=== PATIENT | female | born 1955 | race Caucasian/White ===

== ENCOUNTER 2017-09-08 08:28 | Day surgery (SDC) | payer MEDICARE, MEDICAID ==
[~2017-09-08] VITALS: Ht 147.3 cm; Wt 104.5 kg
[2017-09-08] MEDS ORDERED: SODIUM CHLORIDE 0.9% 1,000 ML IV ONE (09:44)
[2017-09-08 09:48] VITALS: BP 148/78
[2017-09-08] MEDS ORDERED: VALA500T PO (10:04)
[2017-09-08] MEDS ORDERED: ATOR40TA78 PO (10:04)
[2017-09-08] MEDS ORDERED: LISI-170 PO (10:04)
[2017-09-08] MEDS ORDERED: CALCIUM PO (10:04)
[2017-09-08] MEDS ORDERED: INSU100V8 SQ (10:04)
[2017-09-08] MEDS ORDERED: POTA20TA6 PO (10:04)
[2017-09-08] MEDS ORDERED: CEPH-376 PO (10:04)
[2017-09-08] MEDS ORDERED: GABA600T2 PO (10:04)
[2017-09-08] MEDS ORDERED: ASPI-621 PO (10:04)
[2017-09-08] MEDS ORDERED: FURO20TA3 PO (10:04)
[2017-09-08] MEDS ORDERED: DIPH25CA61 PO (10:04)
[2017-09-08] MEDS ORDERED: OMEP40CA6 PO (10:04)
[2017-09-08] MEDS ORDERED: ALBU18HF INH (10:04)
[2017-09-08] MEDS ORDERED: METO50TA6 PO (10:04)
[2017-09-08] MEDS ORDERED: ONDA4TAB13 SL (10:04)
[2017-09-08] MEDS ORDERED: VIT D PO (10:04)
[2017-09-08] MEDS ORDERED: FLUT1DIS3 INH (10:04)
[2017-09-08] MEDS ORDERED: HEPARIN 1,000 UNITS/ML, 10ML ONE ×2 (10:19→10:25)
[2017-09-08] MEDS ORDERED: LIDOCAINE 2%, 2ML ONE (10:19)
[2017-09-08] MEDS ORDERED: MIDAZOLAM 1 MG/ML, 5ML ONE ×2 (10:19→10:24)
[2017-09-08] MEDS ORDERED: VERAPAMIL 2.5 MG/ML, 2ML ONE ×2 (10:19→10:24)
[2017-09-08] MEDS ORDERED: TICAGRELOR 90 MG TABLET ONE ×2 (10:19→10:24)
[2017-09-08] MEDS ORDERED: BIVALIRUDIN 250 MG ONE ×2 (10:19→10:25)
[2017-09-08] MEDS ORDERED: FENTANYL PF 100 MCG/2ML ONE ×2 (10:19→10:24)
[2017-09-08 10:25] LABS: BASOPHILS # (AUTO) 0.06 x10^3/uL (0-0.1); BASOPHILS % (AUTO) 1 % (0-1); EOSINOPHILS # (AUTO) 0.53 x10^3/uL (0-0.4); EOSINOPHILS % (AUTO) 9 % (1-7); LYMPHOCYTES # (AUTO) 0.97 x10^3/uL (1-3.4); LYMPHOCYTES % (AUTO) 17 % (22-44); MD NO; MEAN CORPUSCULAR HEMOGLOBIN 25.7 pg (27.0-34.8); MEAN CORPUSCULAR HGB CONC 32.7 g/dL (32.4-35.8); MEAN CORPUSCULAR VOLUME 78.7 fL (80-100); MEAN PLATELET VOLUME 7.9 fL (7.4-10.4); MONOCYTES # (AUTO) 0.34 x10^3/uL (0.2-0.8); MONOCYTES % (AUTO) 6 % (2-9); NEUTROPHILS # (AUTO) 3.75 x10^3/uL (1.8-6.8); NEUTROPHILS % (AUTO) 66 % (42-75); PLATELET COUNT 262 x10^3/uL (130-400); RED BLOOD COUNT 3.78 x10^6/uL (3.82-5.3); RED CELL DISTRIBUTION WIDTH 17.2 % (9.6-15.2)
[2017-09-08 10:29] LABS: ANION GAP 1 mmol/L (5-15); CALCIUM 8.7 mg/dL (8.5-10.1); CHLORIDE 111 mmol/L (98-107); CREATININE 1.03 mg/dL (0.55-1.02)
[2017-09-08] MEDS ORDERED: SODIUM CHLORIDE 0.9% 1,000 ML IV SCH (11:04)
== END 2017-09-08 15:39 ==
LOC: CVU 08:28
PROVIDERS: ATTEND Internal Medicine Cardiovascular Disease
DX: I25.10 Atherosclerotic heart disease of native coronary artery without angina pectoris (principal); Z79.82 Long term (current) use of aspirin; Z87.891 Personal history of nicotine dependence
CPT/HCPCS: 36415; 80048; 85025; 93306; 93458; 99156; C1769; C1894; J1644; J2250; J3010; J3490; J7030; Q9967; J0583

== ENCOUNTER → 2017-10-04 | Outpatient (CLI) | payer MEDICARE, MEDICAID ==
[~2017-10-04] MED LIST: ALBU18HF INH; ASPI-621 PO; ATOR40TA78 PO; CALCIUM PO; CEPH-376 PO; DIPH25CA61 PO; FLUT1DIS3 INH; FURO20TA3 PO; GABA600T2 PO; INSU100V8 SQ; LISI-170 PO; METO50TA6 PO; OMEP40CA6 PO; ONDA4TAB13 SL; POTA20TA6 PO; VALA500T PO; VIT D PO
[2017-10-04 16:01] LABS: BASOPHILS # (AUTO) 0.04 x10^3/uL (0-0.1); BASOPHILS % (AUTO) 1 % (0-1); EOSINOPHILS # (AUTO) 0.79 x10^3/uL (0-0.4); EOSINOPHILS % (AUTO) 12 % (1-7); LYMPHOCYTES # (AUTO) 1.13 x10^3/uL (1-3.4); LYMPHOCYTES % (AUTO) 16 % (22-44); MD NO; MEAN CORPUSCULAR HEMOGLOBIN 25.4 pg (27.0-34.8); MEAN CORPUSCULAR HGB CONC 32.2 g/dL (32.4-35.8); MEAN CORPUSCULAR VOLUME 78.7 fL (80-100); MEAN PLATELET VOLUME 7.5 fL (7.4-10.4); MONOCYTES # (AUTO) 0.36 x10^3/uL (0.2-0.8); MONOCYTES % (AUTO) 5 % (2-9); NEUTROPHILS # (AUTO) 4.61 x10^3/uL (1.8-6.8); NEUTROPHILS % (AUTO) 67 % (42-75); PLATELET COUNT 258 x10^3/uL (130-400); RED BLOOD COUNT 4.39 x10^6/uL (3.82-5.3); RED CELL DISTRIBUTION WIDTH 17.2 % (9.6-15.2)
[2017-10-04 16:09] LABS: ANION GAP 3 mmol/L (5-15); CALCIUM 9.3 mg/dL (8.5-10.1); CHLORIDE 108 mmol/L (98-107)
== END | disposition home or self-care (01) ==
LOC: CFH 12:52
PROVIDERS: ATTEND Nurse Practitioner Family
DX: I10 Essential (primary) hypertension (principal)
CPT/HCPCS: 36415; 80048; 85025

== ENCOUNTER → 2017-11-15 | Outpatient (CLI) | payer MEDICARE, MEDICAID | END | disposition home or self-care (01) | LOC: WOUND 13:05 | PROVIDERS: ATTEND Internal Medicine | DX: T21.22XA Burn of second degree of abdominal wall, initial encounter (principal); T24.211A Burn of second degree of right thigh, initial encounter; S70.341A External constriction, right thigh, initial encounter; S30.84 External constriction of abdomen, lower back, pelvis and external genitals; T31.0 Burns involving less than 10% of body surface; E66.01 Morbid (severe) obesity due to excess calories; J44.9 Chronic obstructive pulmonary disease, unspecified; I89.0 Lymphedema, not elsewhere classified; I11.0 Hypertensive heart disease with heart failure; I50.9 Heart failure, unspecified; Z79.4 Long term (current) use of insulin; Z68.41 Body mass index [BMI] 40.0-44.9, adult; Z87.891 Personal history of nicotine dependence; W49.09XA Other specified item causing external constriction, initial encounter; X10.0XXA Contact with hot drinks, initial encounter; Y93.89 Activity, other specified; Y92.89 Other specified places as the place of occurrence of the external cause; Y99.8 Other external cause status | CPT/HCPCS: 97597; 97598; G0463; WOU0463 ==

== ENCOUNTER → 2017-11-29 | Outpatient (CLI) | payer MEDICARE, MEDICAID | END | disposition home or self-care (01) | LOC: WOUND 11:00 | PROVIDERS: ATTEND Internal Medicine | DX: T21.32XD Burn of third degree of abdominal wall, subsequent encounter (principal); T31.0 Burns involving less than 10% of body surface; E11.8 Type 2 diabetes mellitus with unspecified complications; I11.0 Hypertensive heart disease with heart failure; I50.9 Heart failure, unspecified; J44.9 Chronic obstructive pulmonary disease, unspecified; E66.01 Morbid (severe) obesity due to excess calories; Z68.41 Body mass index [BMI] 40.0-44.9, adult; Z79.4 Long term (current) use of insulin; Z87.891 Personal history of nicotine dependence; X08.8XXD Exposure to other specified smoke, fire and flames, subsequent encounter | CPT/HCPCS: 97597 ==

== ENCOUNTER → 2017-12-06 | Outpatient (CLI) | payer MEDICARE, MEDICAID | END | disposition home or self-care (01) | LOC: WOUND 09:13 | PROVIDERS: ATTEND Internal Medicine | DX: T21.32XD Burn of third degree of abdominal wall, subsequent encounter (principal); T31.0 Burns involving less than 10% of body surface; I11.0 Hypertensive heart disease with heart failure; I50.9 Heart failure, unspecified; J44.9 Chronic obstructive pulmonary disease, unspecified; I89.0 Lymphedema, not elsewhere classified; E11.8 Type 2 diabetes mellitus with unspecified complications; K21.9 Gastro-esophageal reflux disease without esophagitis; E66.01 Morbid (severe) obesity due to excess calories; F15.20 Other stimulant dependence, uncomplicated; Z68.41 Body mass index [BMI] 40.0-44.9, adult; Z79.4 Long term (current) use of insulin; Z87.891 Personal history of nicotine dependence; X19.XXXD Contact with other heat and hot substances, subsequent encounter | CPT/HCPCS: 97597 ==

== ENCOUNTER → 2017-12-13 | Outpatient (CLI) | payer MEDICARE, MEDICAID | END | disposition home or self-care (01) | LOC: WOUND 14:51 | PROVIDERS: ATTEND Internal Medicine | DX: T21.22XD Burn of second degree of abdominal wall, subsequent encounter (principal); S30.84 External constriction of abdomen, lower back, pelvis and external genitals; T31.0 Burns involving less than 10% of body surface; E66.01 Morbid (severe) obesity due to excess calories; J44.9 Chronic obstructive pulmonary disease, unspecified; I89.0 Lymphedema, not elsewhere classified; I11.0 Hypertensive heart disease with heart failure; I50.9 Heart failure, unspecified; K21.9 Gastro-esophageal reflux disease without esophagitis; E11.9 Type 2 diabetes mellitus without complications; F15.20 Other stimulant dependence, uncomplicated; Z87.891 Personal history of nicotine dependence; Z79.4 Long term (current) use of insulin; Z68.41 Body mass index [BMI] 40.0-44.9, adult; W49.0 Item causing external constriction; X10.0XXD Contact with hot drinks, subsequent encounter | CPT/HCPCS: 97597 ==

== ENCOUNTER → 2017-12-20 | Outpatient (CLI) | payer MEDICARE, MEDICAID | END | disposition home or self-care (01) | LOC: WOUND 14:41 | PROVIDERS: ATTEND Internal Medicine | DX: T21.22XD Burn of second degree of abdominal wall, subsequent encounter (principal); S30.84 External constriction of abdomen, lower back, pelvis and external genitals; T31.0 Burns involving less than 10% of body surface; E66.01 Morbid (severe) obesity due to excess calories; J44.9 Chronic obstructive pulmonary disease, unspecified; I89.0 Lymphedema, not elsewhere classified; I50.9 Heart failure, unspecified; I11.0 Hypertensive heart disease with heart failure; K21.9 Gastro-esophageal reflux disease without esophagitis; E11.9 Type 2 diabetes mellitus without complications; F15.20 Other stimulant dependence, uncomplicated; Z87.891 Personal history of nicotine dependence; Z79.4 Long term (current) use of insulin; Z68.41 Body mass index [BMI] 40.0-44.9, adult; W49.0 Item causing external constriction; X10.0XXD Contact with hot drinks, subsequent encounter | CPT/HCPCS: 97597 ==

== ENCOUNTER → 2018-01-03 | Outpatient (CLI) | payer MEDICARE, MEDICAID | END | disposition home or self-care (01) | LOC: WOUND 13:06 | PROVIDERS: ATTEND Internal Medicine | DX: E11.622 Type 2 diabetes mellitus with other skin ulcer (principal); L97.112 Non-pressure chronic ulcer of right thigh with fat layer exposed; E66.01 Morbid (severe) obesity due to excess calories; J44.9 Chronic obstructive pulmonary disease, unspecified; I89.0 Lymphedema, not elsewhere classified; I11.0 Hypertensive heart disease with heart failure; I50.9 Heart failure, unspecified; K21.9 Gastro-esophageal reflux disease without esophagitis; F15.20 Other stimulant dependence, uncomplicated; Z87.891 Personal history of nicotine dependence; Z99.81 Dependence on supplemental oxygen; Z68.41 Body mass index [BMI] 40.0-44.9, adult; Z79.4 Long term (current) use of insulin | CPT/HCPCS: G0463; WOU0463 ==

== ENCOUNTER → 2019-04-10 | Outpatient (CLI) | payer MEDICARE, MEDICAID ==
[~2019-04-10] MED LIST changes: -ASPI-621 PO; +ASPI81TA45 PO; -GABA600T2 PO; +GABA600T7 PO; +OMEP40CA42 PO; -OMEP40CA6 PO
== END | disposition home or self-care (01) ==
LOC: CVU 15:40
PROVIDERS: ATTEND Nurse Practitioner Family
DX: I08.3 Combined rheumatic disorders of mitral, aortic and tricuspid valves (principal); I11.0 Hypertensive heart disease with heart failure; I50.9 Heart failure, unspecified; E11.9 Type 2 diabetes mellitus without complications
CPT/HCPCS: 93306